=== PATIENT | male | born 1955 | race Caucasian/White ===

== ENCOUNTER → 2019-04-04 | Outpatient (CLI) | payer MEDICARE ==
[~2019-04-04] MED LIST: ATOR40TA78 PO; CARB200T4 PO; CARV6.25 PO; FAMO-79 PO; LAMO100T5 PO; LEVO25TA4 PO; LISI5TAB7 PO; WARF3TAB52 PO; WARF4TAB65 PO; ZIPR60CA3 PO
[2019-04-04 12:59] LABS: MEAN CORPUSCULAR HEMOGLOBIN 30.9 pg (27.5-34.5); MEAN CORPUSCULAR HGB CONC 33.5 g/dL (33.2-36.2); MEAN CORPUSCULAR VOLUME 92.5 fL (81-97); MEAN PLATELET VOLUME 6.9 fL (7.4-10.4); PLATELET COUNT 208 x10^3/uL (130-400); RED BLOOD COUNT 5.12 x10^6/uL (4.38-5.82)
[2019-04-04 15:49] LABS: CHLORIDE 109 mmol/L (98-107)
[2019-04-04 16:10] LABS: ALANINE AMINOTRANSFERASE 34 U/L (12-78); ALKALINE PHOSPHATASE 83 U/L (45-117); ANION GAP 5 mmol/L (5-15); BILIRUBIN,TOTAL 0.6 mg/dL (0.2-1.0); CALCIUM 8.4 mg/dL (8.5-10.1); CHOL/HDL RATIO 4.2; CHOLESTEROL, TOTAL 147 mg/dL (140-239); FREE T4 (FREE THYROXINE) 0.88 ng/dL (0.76-1.46); HDL CHOL % 24 % (26-37); HDL CHOLESTEROL (DIRECT) 35 mg/dL (40-60); LDL CHOLESTEROL,CALCULATED 80 mg/dL (54-169); LDL/HDL RATIO 2.3 (0.5-3.0); TOTAL PROTEIN 7.4 g/dL (6.4-8.2); TRIGLYCERIDES 159 mg/dL (50-200); VLDL CHOLESTEROL 32 mg/dL (0-25)
== END | disposition home or self-care (01) ==
LOC: CFH 11:32
PROVIDERS: ATTEND Family Medicine
DX: E03.9 Hypothyroidism, unspecified (principal); E78.2 Mixed hyperlipidemia; I10 Essential (primary) hypertension; K21.9 Gastro-esophageal reflux disease without esophagitis
CPT/HCPCS: 36415; 80053; 80061; 84439; 84443; 85027

== ENCOUNTER 2019-04-06 12:58 | Emergency (ER) | payer MEDICARE ==
[~2019-04-06] VITALS: Ht 193 cm; Wt 74.2 kg
[2019-04-06 13:25] VITALS: BP 148/93
[2019-04-06] MEDS ORDERED: LAMO100T5 PO (14:07)
[2019-04-06] MEDS ORDERED: FAMO-79 PO (14:07)
[2019-04-06] MEDS ORDERED: ATOR40TA78 PO (14:07)
[2019-04-06] MEDS ORDERED: CARB200T4 PO (14:07)
[2019-04-06] MEDS ORDERED: WARF4TAB65 PO (14:07)
[2019-04-06] MEDS ORDERED: LISI5TAB7 PO (14:07)
[2019-04-06] MEDS ORDERED: WARF3TAB52 PO (14:07)
[2019-04-06] MEDS ORDERED: LEVO25TA4 PO (14:07)
[2019-04-06] MEDS ORDERED: CARV6.25 PO (14:07)
[2019-04-06] MEDS ORDERED: ZIPR60CA3 PO (14:07)
--- NOTE | 2019-04-06 14:10 | NUR ---
PT PRESENTS TO ED W ATTEMPT OF SI THIS AM. PER FAMILY PT HAS HX OF PSYCH DISORDERS INCLUDING MANIC DEPRESSIVE. PT HAS HAD PLAN TO TAKE WARFARIN TO KILL HIMSELF. PT DECIDED NOT TOO AND LEFT MEDICATIONS ALONE. PT STATES HE TAKES ALL MEDICATIONS APPROPIATELY. PER FAMILY. PT WAS RECENTLY IN A [facility]PAT[facility] IN [facility]. ALL BELONGINGS SECURED. UA OBTAINED. FAMILY W PT. PT IS COOPERATIVE. PER FAMILY, PT IS UNABLE TO MAKE CLEAR DECISIONS FORSELF.
[2019-04-06 14:12] LABS: ALBUMIN 4.2 g/dL (3.4-5.0); ANION GAP 6 mmol/L (5-15); CALCIUM 8.5 mg/dL (8.5-10.1); CHLORIDE 107 mmol/L (98-107); CREATININE 1.15 mg/dL (0.7-1.3)
[2019-04-06 14:14] LABS: MEAN CORPUSCULAR HEMOGLOBIN 30.7 pg (27.5-34.5); MEAN CORPUSCULAR HGB CONC 33.4 g/dL (33.2-36.2); MEAN PLATELET VOLUME 6.9 fL (7.4-10.4); PLATELET COUNT 236 x10^3/uL (130-400); RED BLOOD COUNT 5.07 x10^6/uL (4.38-5.82); RED CELL DISTRIBUTION WIDTH 14.7 % (9.4-14.8)
[2019-04-06 14:19] LABS: SALICYLATE LEVEL < 1.7 mg/dL (2.8-20.0)
[2019-04-06 14:23] LABS: AMPHETAMINE SCREEN, URINE Negative (Negative); BARBITURATE SCREEN, URINE Negative (Negative); BENZODIAZEPINE SCREEN, URINE Negative (Negative); CANNABINOID SCREEN, URINE Negative (Negative); COCAINE SCREEN, URINE Negative (Negative); METHADONE SCREEN, URINE Negative (Negative); OPIATE SCREEN, URINE Negative (Negative)
--- NOTE | 2019-04-06 14:30 | NUR ---
KAMLA, SISTER. [phone]. OK TO GIVE INFO
[2019-04-06 14:36] LABS: BASOPHILS # (AUTO) 0.08 x10^3/uL (0-0.1); BASOPHILS % (AUTO) 1 % (0-1); EOSINOPHILS # (AUTO) 0.17 x10^3/uL (0-0.4); EOSINOPHILS % (AUTO) 2 % (1-7); LYMPHOCYTES # (AUTO) 1.14 x10^3/uL (1-3.4); LYMPHOCYTES % (AUTO) 14 % (22-44); MD SCAN; MONOCYTES # (AUTO) 0.67 x10^3/uL (0.2-0.8); MONOCYTES % (AUTO) 8 % (2-9); NEUTROPHILS # (AUTO) 6.05 x10^3/uL (1.8-6.8); NEUTROPHILS % (AUTO) 75 % (42-75)
--- NOTE | 2019-04-06 14:52 | NUR ---
FLOAT RN: PT RESTING IN ROOM. NO ACUTE DISTRESS NOTED.SITTER AT DOOR. WILL CONTINUE TO MONITOR PT WHILE PRIMARY RN IS ON BREAK.
--- NOTE | 2019-04-06 15:09 | NUR ---
CRISTIAN GARCIA IN ROOM TALKING WITH PATIENT.
--- NOTE | 2019-04-06 15:14 | NUR ---
Report given to AGGIE Gaston
[2019-04-06 15:34] LABS: INTERNATIONAL NORMALIZED RATIO 1.61 (0.93-1.1); PROTHROMBIN TIME 16.6 Seconds (9.6-11.5)
--- NOTE | 2019-04-06 16:40 | NUR ---
DIET TRAY ORDERED
--- NOTE | 2019-04-06 17:14 | NUR ---
REPORT TO Judi GERARD STABLE FOR TRANSFER
--- NOTE | 2019-04-06 17:27 | NUR ---
PT TRANSFERRED W BELONGINGS.
== END 2019-04-06 18:08 ==
LOC: ED 18:02
DX: R45.851 Suicidal ideations (principal); F31.9 Bipolar disorder, unspecified; I48.91 Unspecified atrial fibrillation; Z86.73 Personal history of transient ischemic attack (TIA), and cerebral infarction without residual deficits
CPT/HCPCS: 36415; 80048; 80307; 82040; 85025; 85610; 99284

== ENCOUNTER 2019-04-06 17:17 | Inpatient (IN) | payer MEDICARE ==
[~2019-04-06] VITALS: Ht 193 cm; Wt 74.8 kg
[2019-04-06] MEDS ORDERED: POLYETHYLENE GLYCOL 17 GM PACKET PO PRN (17:30)
[2019-04-06] MEDS ORDERED: BISACODYL 10 MG SUPP PR PRN (17:30)
[2019-04-06] MEDS ORDERED: ONDANSETRON ODT 4 MG PO PRN (17:30)
[2019-04-06] MEDS ORDERED: DOCUSATE 100 MG CAPSULE PO PRN (17:30)
[2019-04-06 17:50] VITALS: BP 150/98
[2019-04-06] MEDS ORDERED: PLEASE ENTER HEIGHT AND WEIGHT MC SCH ×2 (18:00→18:30)
[2019-04-06 18:29] VITALS: BP 150/98
[2019-04-06 19:34] VITALS: BP 110/72
[2019-04-06] MEDS ORDERED: WARFARIN 5 MG TABLET PO-COUM SCH (21:00)
[2019-04-06] MEDS ORDERED: CARVEDILOL 3.125 MG TABLET ONE (21:18)
[2019-04-06] MEDS ORDERED: WARFARIN 5 MG TABLET PO-COUM ONE (21:57)
[2019-04-06] MEDS: CARVEDILOL 6.25 MG TABLET PO SCH (21:59)
[2019-04-06] MEDS: ENOXAPARIN 80 MG/0.8 ML SQ SCH (22:00)
[2019-04-06] MEDS: ATORVASTATIN 40 MG TABLET PO SCH (22:00)
[2019-04-06] MEDS: ZIPRASIDONE 20MG CAPSULE PO SCH (22:00)
[2019-04-06] MEDS: FAMOTIDINE 20 MG TABLET PO SCH (22:00)
[2019-04-06] MEDS: LAMOTRIGINE 100 MG TABLET PO SCH (22:00)
[2019-04-06] MEDS: CARBAMAZEPINE 200 MG TABLET PO SCH (22:00)
[2019-04-07 05:51] VITALS: BP 112/73
[2019-04-07 06:02] LABS: CHOL/HDL RATIO 4.9; LDL/HDL RATIO 2.2 (0.5-3.0); T4 (THYROXINE) 6.6 mcg/dL (4.5-12.1)
[2019-04-07] MEDS: LEVOTHYROXINE 25 MCG TABLET PO SCH (06:10)
[2019-04-07] MEDS: CARVEDILOL 6.25 MG TABLET PO SCH ×2 (06:11→18:25)
[2019-04-07 07:00] VITALS: BP 117/76
[2019-04-07] MEDS: ENOXAPARIN 80 MG/0.8 ML SQ SCH ×2 (09:00→21:00)
[2019-04-07] MEDS: FAMOTIDINE 20 MG TABLET PO SCH ×2 (09:13→21:02)
[2019-04-07] MEDS: CARBAMAZEPINE 200 MG TABLET PO SCH ×2 (09:13→21:02)
[2019-04-07] MEDS: ZIPRASIDONE 20MG CAPSULE PO SCH ×2 (09:13→21:02)
[2019-04-07] MEDS: LAMOTRIGINE 100 MG TABLET PO SCH ×2 (09:13→21:02)
[2019-04-07] MEDS: LISINOPRIL 5 MG TABLET PO SCH (09:13)
[2019-04-07] MEDS: ACETAMINOPHEN 325 MG TABLET PO PRN (13:30)
[2019-04-07 13:48] LABS: INTERNATIONAL NORMALIZED RATIO 1.5 (0.93-1.1); PROTHROMBIN TIME 15.5 Seconds (9.6-11.5)
[2019-04-07 14:12] LABS: MICROSCOPIC AUTO
[2019-04-07 14:15] LABS: CULTURE INDICATED? YES
[2019-04-07] MEDS ORDERED: WARFARIN 3 MG TABLET PO-COUM ONE (18:00)
[2019-04-07] MEDS ORDERED: WARFARIN 5 MG TABLET PO-COUM SCH (18:00)
[2019-04-07 19:05] VITALS: BP 97/57
[2019-04-07] MEDS: ATORVASTATIN 40 MG TABLET PO SCH (21:02)
[2019-04-08 06:08] LABS: INTERNATIONAL NORMALIZED RATIO 2.02 (0.93-1.1); PROTHROMBIN TIME 20.6 Seconds (9.6-11.5)
[2019-04-08] MEDS: CARVEDILOL 6.25 MG TABLET PO SCH ×2 (06:16→17:23)
[2019-04-08] MEDS: LEVOTHYROXINE 25 MCG TABLET PO SCH (06:17)
[2019-04-08 06:19] VITALS: BP 106/73
[2019-04-08 06:58] VITALS: BP 106/71
[2019-04-08] MEDS: ZIPRASIDONE 20MG CAPSULE PO SCH ×2 (08:18→20:26)
[2019-04-08] MEDS: CARBAMAZEPINE 200 MG TABLET PO SCH ×2 (08:18→20:26)
[2019-04-08] MEDS: FAMOTIDINE 20 MG TABLET PO SCH ×2 (08:18→20:26)
[2019-04-08] MEDS: LAMOTRIGINE 100 MG TABLET PO SCH ×2 (08:18→20:26)
[2019-04-08] MEDS: LISINOPRIL 5 MG TABLET PO SCH (08:18)
[2019-04-08] MEDS: ENOXAPARIN 80 MG/0.8 ML SQ SCH ×2 (08:19→21:00)
[2019-04-08] MEDS ORDERED: WARFARIN 3 MG TABLET PO-COUM ONE (18:00)
[2019-04-08 19:26] VITALS: BP 111/76
[2019-04-08] MEDS: ATORVASTATIN 40 MG TABLET PO SCH (20:26)
[2019-04-09] MEDS: LEVOTHYROXINE 25 MCG TABLET PO SCH (06:26)
[2019-04-09] MEDS: CARVEDILOL 6.25 MG TABLET PO SCH ×2 (06:26→18:10)
[2019-04-09 06:29] LABS: INTERNATIONAL NORMALIZED RATIO 1.96 (0.93-1.1); PROTHROMBIN TIME 20.1 Seconds (9.6-11.5)
[2019-04-09 07:36] VITALS: BP 108/72
[2019-04-09] MEDS: LAMOTRIGINE 100 MG TABLET PO SCH ×2 (09:00→20:54)
[2019-04-09] MEDS: FAMOTIDINE 20 MG TABLET PO SCH ×2 (09:00→20:54)
[2019-04-09] MEDS: ZIPRASIDONE 20MG CAPSULE PO SCH ×2 (09:00→20:54)
[2019-04-09] MEDS: CARBAMAZEPINE 200 MG TABLET PO SCH ×2 (09:00→20:54)
[2019-04-09] MEDS: ENOXAPARIN 80 MG/0.8 ML SQ SCH ×2 (09:01→20:54)
[2019-04-09] MEDS: LISINOPRIL 5 MG TABLET PO SCH (09:01)
[2019-04-09] MEDS ORDERED: WARFARIN 3 MG TABLET PO-COUM ONE (18:00)
[2019-04-09] MEDS: QUETIAPINE 25MG TABLET PO PRN (18:15)
[2019-04-09 19:48] VITALS: BP 102/66
[2019-04-09] MEDS: ATORVASTATIN 40 MG TABLET PO SCH (20:54)
[2019-04-10] MEDS: LEVOTHYROXINE 25 MCG TABLET PO SCH (05:51)
[2019-04-10] MEDS: CARVEDILOL 6.25 MG TABLET PO SCH ×2 (05:51→17:04)
[2019-04-10 06:29] LABS: INTERNATIONAL NORMALIZED RATIO 1.69 (0.93-1.1); PROTHROMBIN TIME 17.4 Seconds (9.6-11.5)
[2019-04-10 07:49] VITALS: BP 109/75
[2019-04-10] MEDS: CARBAMAZEPINE 200 MG TABLET PO SCH ×2 (08:33→21:00)
[2019-04-10] MEDS: FAMOTIDINE 20 MG TABLET PO SCH ×2 (08:33→20:28)
[2019-04-10] MEDS: ZIPRASIDONE 20MG CAPSULE PO SCH ×2 (08:34→20:28)
[2019-04-10] MEDS: LISINOPRIL 5 MG TABLET PO SCH (08:34)
[2019-04-10] MEDS: LAMOTRIGINE 100 MG TABLET PO SCH ×2 (08:34→20:28)
[2019-04-10] MEDS: ENOXAPARIN 80 MG/0.8 ML SQ SCH ×2 (08:41→21:00)
[2019-04-10] MEDS ORDERED: WARFARIN 5 MG TABLET PO-COUM ONE (18:00)
[2019-04-10 19:33] VITALS: BP 116/78
[2019-04-10] MEDS: ATORVASTATIN 40 MG TABLET PO SCH (20:27)
[2019-04-11 06:25] LABS: INTERNATIONAL NORMALIZED RATIO 1.54 (0.93-1.1); PROTHROMBIN TIME 15.9 Seconds (9.6-11.5)
[2019-04-11 07:03] VITALS: BP 119/83
[2019-04-11] MEDS: CARVEDILOL 6.25 MG TABLET PO SCH ×2 (07:22→18:04)
[2019-04-11] MEDS: LEVOTHYROXINE 25 MCG TABLET PO SCH (07:22)
[2019-04-11] MEDS: LISINOPRIL 5 MG TABLET PO SCH (08:33)
[2019-04-11] MEDS: LAMOTRIGINE 100 MG TABLET PO SCH ×2 (08:33→20:33)
[2019-04-11] MEDS: ZIPRASIDONE 20MG CAPSULE PO SCH ×2 (08:34→20:32)
[2019-04-11] MEDS: CARBAMAZEPINE 200 MG TABLET PO SCH ×2 (08:34→20:32)
[2019-04-11] MEDS: FAMOTIDINE 20 MG TABLET PO SCH ×2 (08:34→20:32)
[2019-04-11] MEDS: ENOXAPARIN 80 MG/0.8 ML SQ SCH ×2 (08:34→20:33)
[2019-04-11] MEDS: QUETIAPINE 25MG TABLET PO PRN (12:42)
[2019-04-11] MEDS ORDERED: WARFARIN 7.5 MG TABLET PO-COUM ONE (18:00)
[2019-04-11 19:37] VITALS: BP 101/67
[2019-04-11] MEDS: ATORVASTATIN 40 MG TABLET PO SCH (20:33)
[2019-04-12] MEDS: CARVEDILOL 6.25 MG TABLET PO SCH ×2 (05:25→19:14)
[2019-04-12] MEDS: LEVOTHYROXINE 25 MCG TABLET PO SCH (05:25)
[2019-04-12 06:19] LABS: INTERNATIONAL NORMALIZED RATIO 1.89 (0.93-1.1); PROTHROMBIN TIME 19.4 Seconds (9.6-11.5)
[2019-04-12 07:09] VITALS: BP 102/67
[2019-04-12] MEDS: ENOXAPARIN 80 MG/0.8 ML SQ SCH ×2 (09:00→20:54)
[2019-04-12] MEDS: ZIPRASIDONE 20MG CAPSULE PO SCH ×2 (10:52→20:25)
[2019-04-12] MEDS: LISINOPRIL 5 MG TABLET PO SCH (10:52)
[2019-04-12] MEDS: FAMOTIDINE 20 MG TABLET PO SCH ×2 (10:53→20:25)
[2019-04-12] MEDS: LAMOTRIGINE 100 MG TABLET PO SCH ×2 (10:53→20:25)
[2019-04-12] MEDS: CARBAMAZEPINE 200 MG TABLET PO SCH ×2 (10:53→20:25)
[2019-04-12] MEDS ORDERED: WARFARIN 5 MG TABLET PO-COUM ONE (18:00)
[2019-04-12 19:25] VITALS: BP 111/66
[2019-04-12] MEDS: ATORVASTATIN 40 MG TABLET PO SCH (20:25)
[2019-04-13] MEDS: CARVEDILOL 6.25 MG TABLET PO SCH ×2 (05:12→17:39)
[2019-04-13] MEDS: LEVOTHYROXINE 25 MCG TABLET PO SCH (05:12)
[2019-04-13 07:00] VITALS: BP 106/69
[2019-04-13] MEDS: ENOXAPARIN 80 MG/0.8 ML SQ SCH ×2 (08:37→20:54)
[2019-04-13] MEDS: FAMOTIDINE 20 MG TABLET PO SCH ×2 (08:37→20:14)
[2019-04-13] MEDS: CARBAMAZEPINE 200 MG TABLET PO SCH ×2 (08:37→20:15)
[2019-04-13] MEDS: ZIPRASIDONE 20MG CAPSULE PO SCH ×2 (08:37→20:15)
[2019-04-13] MEDS: LAMOTRIGINE 100 MG TABLET PO SCH ×2 (08:37→20:15)
[2019-04-13] MEDS: LISINOPRIL 5 MG TABLET PO SCH (08:37)
[2019-04-13 09:14] LABS: INTERNATIONAL NORMALIZED RATIO 1.96 (0.93-1.1); PROTHROMBIN TIME 20.1 Seconds (9.6-11.5)
[2019-04-13] MEDS ORDERED: WARFARIN 2 MG TABLET PO-COUM SCH (18:00)
[2019-04-13 19:15] VITALS: BP 127/76
[2019-04-13] MEDS: ATORVASTATIN 40 MG TABLET PO SCH (20:15)
[2019-04-14 05:20] LABS: INTERNATIONAL NORMALIZED RATIO 1.89 (0.93-1.1); PROTHROMBIN TIME 19.4 Seconds (9.6-11.5)
[2019-04-14] MEDS: CARVEDILOL 6.25 MG TABLET PO SCH ×2 (06:04→17:34)
[2019-04-14] MEDS: LEVOTHYROXINE 25 MCG TABLET PO SCH (06:05)
[2019-04-14 07:22] VITALS: BP 106/71
[2019-04-14] MEDS: FAMOTIDINE 20 MG TABLET PO SCH ×2 (08:37→20:19)
[2019-04-14] MEDS: ZIPRASIDONE 20MG CAPSULE PO SCH ×2 (08:37→20:19)
[2019-04-14] MEDS: LISINOPRIL 5 MG TABLET PO SCH (08:37)
[2019-04-14] MEDS: CARBAMAZEPINE 200 MG TABLET PO SCH ×2 (08:37→20:19)
[2019-04-14] MEDS: LAMOTRIGINE 100 MG TABLET PO SCH ×2 (08:37→20:19)
[2019-04-14] MEDS: ENOXAPARIN 80 MG/0.8 ML SQ SCH ×2 (08:44→20:20)
[2019-04-14] MEDS ORDERED: WARFARIN 3 MG TABLET PO-COUM SCH (18:00)
[2019-04-14 19:33] VITALS: BP 119/69
[2019-04-14] MEDS: ATORVASTATIN 40 MG TABLET PO SCH (20:19)
[2019-04-15 05:22] LABS: INTERNATIONAL NORMALIZED RATIO 1.94 (0.93-1.1); PROTHROMBIN TIME 19.9 Seconds (9.6-11.5)
[2019-04-15 06:04] VITALS: BP 103/69
[2019-04-15] MEDS: CARVEDILOL 6.25 MG TABLET PO SCH ×2 (06:08→18:07)
[2019-04-15] MEDS: LEVOTHYROXINE 25 MCG TABLET PO SCH (06:08)
[2019-04-15 07:35] VITALS: BP 119/78
[2019-04-15] MEDS: CARBAMAZEPINE 200 MG TABLET PO SCH ×2 (08:45→21:01)
[2019-04-15] MEDS: FAMOTIDINE 20 MG TABLET PO SCH ×2 (08:45→21:01)
[2019-04-15] MEDS: LAMOTRIGINE 100 MG TABLET PO SCH ×2 (08:45→21:01)
[2019-04-15] MEDS: ZIPRASIDONE 20MG CAPSULE PO SCH ×2 (08:45→21:01)
[2019-04-15] MEDS: LISINOPRIL 5 MG TABLET PO SCH (08:45)
[2019-04-15] MEDS: ENOXAPARIN 80 MG/0.8 ML SQ SCH ×2 (08:50→21:05)
[2019-04-15] MEDS ORDERED: WARFARIN 3 MG TABLET PO-COUM SCH (18:00)
[2019-04-15 19:59] VITALS: BP 117/72
[2019-04-15] MEDS: ATORVASTATIN 40 MG TABLET PO SCH (21:01)
[2019-04-16] MEDS: LEVOTHYROXINE 25 MCG TABLET PO SCH (05:44)
[2019-04-16] MEDS: CARVEDILOL 6.25 MG TABLET PO SCH ×2 (05:44→17:44)
[2019-04-16 06:24] LABS: INTERNATIONAL NORMALIZED RATIO 2.14 (0.93-1.1); PROTHROMBIN TIME 21.8 Seconds (9.6-11.5)
[2019-04-16 07:30] VITALS: BP 108/70
[2019-04-16] MEDS: ENOXAPARIN 80 MG/0.8 ML SQ SCH ×2 (09:00→21:00)
[2019-04-16] MEDS: ZIPRASIDONE 20MG CAPSULE PO SCH ×2 (09:42→20:37)
[2019-04-16] MEDS: CARBAMAZEPINE 200 MG TABLET PO SCH ×2 (09:42→20:37)
[2019-04-16] MEDS: LAMOTRIGINE 100 MG TABLET PO SCH ×2 (09:43→20:37)
[2019-04-16] MEDS: LISINOPRIL 5 MG TABLET PO SCH (09:43)
[2019-04-16] MEDS: FAMOTIDINE 20 MG TABLET PO SCH ×2 (09:43→20:37)
[2019-04-16] MEDS ORDERED: WARFARIN 3 MG TABLET PO-COUM SCH (18:00)
[2019-04-16 19:45] VITALS: BP 110/66
[2019-04-16] MEDS: ATORVASTATIN 40 MG TABLET PO SCH (20:37)
[2019-04-17] MEDS: CARVEDILOL 6.25 MG TABLET PO SCH ×2 (05:10→18:34)
[2019-04-17] MEDS: LEVOTHYROXINE 25 MCG TABLET PO SCH (05:10)
[2019-04-17] MEDS: QUETIAPINE 25MG TABLET PO PRN (05:11)
[2019-04-17 06:18] LABS: INTERNATIONAL NORMALIZED RATIO 2.25 (0.93-1.1); PROTHROMBIN TIME 22.9 Seconds (9.6-11.5)
[2019-04-17 07:12] VITALS: BP 105/72
[2019-04-17] MEDS: FAMOTIDINE 20 MG TABLET PO SCH ×2 (08:53→21:08)
[2019-04-17] MEDS: ZIPRASIDONE 20MG CAPSULE PO SCH ×2 (08:53→21:08)
[2019-04-17] MEDS: ENOXAPARIN 80 MG/0.8 ML SQ SCH ×2 (08:54→21:07)
[2019-04-17] MEDS: LAMOTRIGINE 100 MG TABLET PO SCH ×2 (08:54→21:08)
[2019-04-17] MEDS: LISINOPRIL 5 MG TABLET PO SCH (08:54)
[2019-04-17] MEDS: CARBAMAZEPINE 200 MG TABLET PO SCH (08:54)
[2019-04-17] MEDS ORDERED: WARFARIN 5 MG TABLET PO-COUM ONE (18:00)
[2019-04-17 19:40] VITALS: BP 109/74
[2019-04-17] MEDS: ATORVASTATIN 40 MG TABLET PO SCH (21:08)
[2019-04-17] MEDS: CARBAMAZEPINE 100 MG TAB.CHEW PO SCH (21:08)
[2019-04-18 05:35] VITALS: BP 117/67
[2019-04-18] MEDS: LEVOTHYROXINE 25 MCG TABLET PO SCH (05:37)
[2019-04-18] MEDS: CARVEDILOL 6.25 MG TABLET PO SCH ×2 (05:37→16:53)
[2019-04-18 07:33] VITALS: BP 107/75
[2019-04-18 08:06] LABS: INTERNATIONAL NORMALIZED RATIO 2.6 (0.93-1.1); PROTHROMBIN TIME 26.3 Seconds (9.6-11.5)
[2019-04-18] MEDS: CARBAMAZEPINE 100 MG TAB.CHEW PO SCH ×2 (08:22→20:43)
[2019-04-18] MEDS: LISINOPRIL 5 MG TABLET PO SCH (08:22)
[2019-04-18] MEDS: LAMOTRIGINE 100 MG TABLET PO SCH ×2 (08:22→20:43)
[2019-04-18] MEDS: FAMOTIDINE 20 MG TABLET PO SCH ×2 (08:22→20:43)
[2019-04-18] MEDS: ZIPRASIDONE 20MG CAPSULE PO SCH ×2 (08:22→20:43)
[2019-04-18] MEDS: ENOXAPARIN 80 MG/0.8 ML SQ SCH ×2 (08:23→20:47)
[2019-04-18] MEDS: ACETAMINOPHEN 325 MG TABLET PO PRN (16:54)
[2019-04-18] MEDS ORDERED: WARFARIN 2 MG TABLET PO-COUM ONE (18:00)
[2019-04-18 19:10] VITALS: BP 105/68
[2019-04-18] MEDS: ATORVASTATIN 40 MG TABLET PO SCH (20:43)
[2019-04-19 05:33] VITALS: BP 117/79
[2019-04-19] MEDS: LEVOTHYROXINE 25 MCG TABLET PO SCH (05:35)
[2019-04-19] MEDS: CARVEDILOL 6.25 MG TABLET PO SCH ×2 (05:48→18:18)
[2019-04-19 06:00] LABS: INTERNATIONAL NORMALIZED RATIO 2.58 (0.93-1.1); PROTHROMBIN TIME 26.1 Seconds (9.6-11.5)
[2019-04-19 07:23] VITALS: BP 105/69
[2019-04-19] MEDS: CARBAMAZEPINE 100 MG TAB.CHEW PO SCH ×2 (08:55→20:22)
[2019-04-19] MEDS: ZIPRASIDONE 20MG CAPSULE PO SCH ×2 (08:55→20:22)
[2019-04-19] MEDS: FAMOTIDINE 20 MG TABLET PO SCH ×2 (08:55→20:22)
[2019-04-19] MEDS: LAMOTRIGINE 100 MG TABLET PO SCH ×2 (08:55→20:22)
[2019-04-19] MEDS: LISINOPRIL 5 MG TABLET PO SCH (08:56)
[2019-04-19] MEDS: ENOXAPARIN 80 MG/0.8 ML SQ SCH ×2 (08:56→20:30)
[2019-04-19] MEDS ORDERED: WARFARIN 2 MG TABLET PO-COUM ONE (18:00)
[2019-04-19 19:52] VITALS: BP 115/78
[2019-04-19] MEDS: ATORVASTATIN 40 MG TABLET PO SCH (20:22)
[2019-04-20] MEDS: CARVEDILOL 6.25 MG TABLET PO SCH ×2 (05:27→18:34)
[2019-04-20] MEDS: LEVOTHYROXINE 25 MCG TABLET PO SCH (05:27)
[2019-04-20 05:50] LABS: INTERNATIONAL NORMALIZED RATIO 1.89 (0.93-1.1); PROTHROMBIN TIME 19.4 Seconds (9.6-11.5)
[2019-04-20 07:00] VITALS: BP 112/74
[2019-04-20] MEDS: ENOXAPARIN 80 MG/0.8 ML SQ SCH ×2 (08:35→20:33)
[2019-04-20] MEDS: FAMOTIDINE 20 MG TABLET PO SCH ×2 (08:38→20:35)
[2019-04-20] MEDS: LAMOTRIGINE 100 MG TABLET PO SCH ×2 (08:38→20:35)
[2019-04-20] MEDS: CARBAMAZEPINE 100 MG TAB.CHEW PO SCH ×2 (08:38→20:33)
[2019-04-20] MEDS: LISINOPRIL 5 MG TABLET PO SCH (08:38)
[2019-04-20] MEDS: ZIPRASIDONE 20MG CAPSULE PO SCH ×2 (08:38→20:34)
[2019-04-20] MEDS ORDERED: WARFARIN 3 MG TABLET PO-COUM ONE (18:00)
[2019-04-20 18:36] VITALS: BP 90/63
[2019-04-20] MEDS: ATORVASTATIN 40 MG TABLET PO SCH (20:35)
[2019-04-21] MEDS: CARVEDILOL 6.25 MG TABLET PO SCH ×2 (05:03→17:32)
[2019-04-21] MEDS: LEVOTHYROXINE 25 MCG TABLET PO SCH (05:03)
[2019-04-21 05:28] LABS: INTERNATIONAL NORMALIZED RATIO 1.61 (0.93-1.1); PROTHROMBIN TIME 16.6 Seconds (9.6-11.5)
[2019-04-21 07:37] VITALS: BP 104/69
[2019-04-21] MEDS: CARBAMAZEPINE 100 MG TAB.CHEW PO SCH ×2 (08:47→21:19)
[2019-04-21] MEDS: FAMOTIDINE 20 MG TABLET PO SCH ×2 (08:48→21:19)
[2019-04-21] MEDS: ZIPRASIDONE 20MG CAPSULE PO SCH ×2 (08:48→21:19)
[2019-04-21] MEDS: LISINOPRIL 5 MG TABLET PO SCH (08:48)
[2019-04-21] MEDS: ENOXAPARIN 80 MG/0.8 ML SQ SCH ×3 (08:48→21:19)
[2019-04-21] MEDS: LAMOTRIGINE 100 MG TABLET PO SCH ×2 (08:48→21:19)
[2019-04-21] MEDS ORDERED: WARFARIN 7.5 MG TABLET PO-COUM ONE (18:00)
[2019-04-21 19:23] VITALS: BP 103/67
[2019-04-21] MEDS: ATORVASTATIN 40 MG TABLET PO SCH (21:19)
[2019-04-22] MEDS: CARVEDILOL 6.25 MG TABLET PO SCH ×2 (06:03→17:52)
[2019-04-22] MEDS: LEVOTHYROXINE 25 MCG TABLET PO SCH (06:03)
[2019-04-22 07:30] VITALS: BP 115/79
[2019-04-22 08:31] LABS: INTERNATIONAL NORMALIZED RATIO 1.89 (0.93-1.1); PROTHROMBIN TIME 19.4 Seconds (9.6-11.5)
[2019-04-22] MEDS: LAMOTRIGINE 100 MG TABLET PO SCH ×2 (08:49→20:19)
[2019-04-22] MEDS: LISINOPRIL 5 MG TABLET PO SCH (08:49)
[2019-04-22] MEDS: ZIPRASIDONE 20MG CAPSULE PO SCH ×2 (08:49→20:20)
[2019-04-22] MEDS: CARBAMAZEPINE 100 MG TAB.CHEW PO SCH ×2 (08:49→20:20)
[2019-04-22] MEDS: FAMOTIDINE 20 MG TABLET PO SCH ×2 (08:50→20:19)
[2019-04-22] MEDS: ENOXAPARIN 80 MG/0.8 ML SQ SCH ×2 (09:04→20:20)
[2019-04-22 17:47] VITALS: BP 125/80
[2019-04-22] MEDS ORDERED: WARFARIN 7.5 MG TABLET PO-COUM ONE (18:00)
[2019-04-22 19:39] VITALS: BP 109/75
[2019-04-22] MEDS: ATORVASTATIN 40 MG TABLET PO SCH (20:20)
[2019-04-22] MEDS: QUETIAPINE 25MG TABLET PO PRN (20:39)
[2019-04-23] MEDS: LEVOTHYROXINE 25 MCG TABLET PO SCH (06:13)
[2019-04-23] MEDS: CARVEDILOL 6.25 MG TABLET PO SCH ×2 (06:13→17:57)
[2019-04-23 06:34] LABS: INTERNATIONAL NORMALIZED RATIO 2.71 (0.93-1.1); PROTHROMBIN TIME 27.4 Seconds (9.6-11.5)
[2019-04-23 07:29] VITALS: BP 105/70
[2019-04-23] MEDS: ENOXAPARIN 80 MG/0.8 ML SQ SCH ×2 (09:00→20:31)
[2019-04-23] MEDS: CARBAMAZEPINE 100 MG TAB.CHEW PO SCH ×2 (09:25→20:31)
[2019-04-23] MEDS: ZIPRASIDONE 20MG CAPSULE PO SCH ×2 (09:25→20:30)
[2019-04-23] MEDS: FAMOTIDINE 20 MG TABLET PO SCH ×2 (09:26→20:30)
[2019-04-23] MEDS: LAMOTRIGINE 100 MG TABLET PO SCH ×2 (09:26→20:30)
[2019-04-23] MEDS: LISINOPRIL 5 MG TABLET PO SCH (09:26)
[2019-04-23] MEDS ORDERED: LORazepam 1MG TABLET PO ONE (11:00)
[2019-04-23 17:54] VITALS: BP 122/72
[2019-04-23] MEDS ORDERED: WARFARIN 1 MG TABLET PO-COUM ONE (18:00)
[2019-04-23 19:31] VITALS: BP 107/71
[2019-04-23] MEDS: ATORVASTATIN 40 MG TABLET PO SCH (20:30)
[2019-04-23] MEDS: MELATONIN 3 MG TABLET PO PRN (20:36)
[2019-04-24] MEDS: LEVOTHYROXINE 25 MCG TABLET PO SCH (05:39)
[2019-04-24] MEDS: CARVEDILOL 6.25 MG TABLET PO SCH ×2 (05:39→17:16)
[2019-04-24 05:50] LABS: INTERNATIONAL NORMALIZED RATIO 2.44 (0.93-1.1); PROTHROMBIN TIME 24.8 Seconds (9.6-11.5)
[2019-04-24 07:33] VITALS: BP 112/76
[2019-04-24] MEDS: LISINOPRIL 5 MG TABLET PO SCH (08:31)
[2019-04-24] MEDS: FAMOTIDINE 20 MG TABLET PO SCH ×2 (08:31→20:40)
[2019-04-24] MEDS: ZIPRASIDONE 20MG CAPSULE PO SCH ×2 (08:31→20:40)
[2019-04-24] MEDS: LAMOTRIGINE 100 MG TABLET PO SCH ×2 (08:31→20:40)
[2019-04-24] MEDS: ENOXAPARIN 80 MG/0.8 ML SQ SCH ×2 (08:32→20:41)
[2019-04-24] MEDS: CARBAMAZEPINE 100 MG TAB.CHEW PO SCH ×2 (08:32→20:40)
[2019-04-24] MEDS ORDERED: WARFARIN 2 MG TABLET PO-COUM ONE (18:00)
[2019-04-24 19:38] VITALS: BP 107/73
[2019-04-24] MEDS: ATORVASTATIN 40 MG TABLET PO SCH (20:41)
[2019-04-25] MEDS: CARVEDILOL 6.25 MG TABLET PO SCH ×2 (06:01→18:13)
[2019-04-25] MEDS: LEVOTHYROXINE 25 MCG TABLET PO SCH (06:01)
[2019-04-25 06:23] LABS: INTERNATIONAL NORMALIZED RATIO 1.69 (0.93-1.1); PROTHROMBIN TIME 17.4 Seconds (9.6-11.5)
[2019-04-25 07:06] VITALS: BP 103/71
[2019-04-25] MEDS: LISINOPRIL 5 MG TABLET PO SCH (09:07)
[2019-04-25] MEDS: LAMOTRIGINE 100 MG TABLET PO SCH ×2 (09:07→20:43)
[2019-04-25] MEDS: ZIPRASIDONE 20MG CAPSULE PO SCH ×2 (09:07→20:43)
[2019-04-25] MEDS: FAMOTIDINE 20 MG TABLET PO SCH ×2 (09:07→20:44)
[2019-04-25] MEDS: CARBAMAZEPINE 100 MG TAB.CHEW PO SCH ×2 (09:08→20:43)
[2019-04-25] MEDS: ENOXAPARIN 80 MG/0.8 ML SQ SCH ×2 (09:08→20:43)
[2019-04-25] MEDS ORDERED: LISI5TAB7 PO (15:48)
[2019-04-25] MEDS ORDERED: LAMO100T PO (15:48)
[2019-04-25] MEDS ORDERED: WARF3TAB PO-COUM (15:48)
[2019-04-25] MEDS ORDERED: FAMO20TA7 PO (15:48)
[2019-04-25] MEDS ORDERED: LEVO25TA2 PO (15:48)
[2019-04-25] MEDS ORDERED: CARV6.2512 PO (15:48)
[2019-04-25] MEDS ORDERED: ZIPR20CA2 PO (15:48)
[2019-04-25] MEDS ORDERED: ATOR40TA78 PO (15:48)
[2019-04-25] MEDS ORDERED: CARB100T4 PO (15:48)
[2019-04-25] MEDS ORDERED: WARFARIN 3 MG TABLET PO-COUM ONE (18:00)
[2019-04-25 19:15] VITALS: BP 103/70
[2019-04-25] MEDS: MELATONIN 3 MG TABLET PO PRN (20:43)
[2019-04-25] MEDS: ATORVASTATIN 40 MG TABLET PO SCH (20:43)
[2019-04-26] MEDS: CARVEDILOL 6.25 MG TABLET PO SCH (05:38)
[2019-04-26] MEDS: LEVOTHYROXINE 25 MCG TABLET PO SCH (05:38)
[2019-04-26 07:17] LABS: CREATININE 0.92 mg/dL (0.7-1.3)
[2019-04-26 07:30] LABS: INTERNATIONAL NORMALIZED RATIO 1.63 (0.93-1.1); PROTHROMBIN TIME 16.8 Seconds (9.6-11.5)
[2019-04-26 07:34] VITALS: BP 110/72
[2019-04-26] MEDS: CARBAMAZEPINE 100 MG TAB.CHEW PO SCH (08:44)
[2019-04-26] MEDS: FAMOTIDINE 20 MG TABLET PO SCH (08:44)
[2019-04-26] MEDS: LAMOTRIGINE 100 MG TABLET PO SCH (08:44)
[2019-04-26] MEDS: ENOXAPARIN 80 MG/0.8 ML SQ SCH (08:44)
[2019-04-26] MEDS: ZIPRASIDONE 20MG CAPSULE PO SCH (08:44)
[2019-04-26] MEDS: LISINOPRIL 5 MG TABLET PO SCH (08:44)
[2019-04-26] MEDS: QUETIAPINE 25MG TABLET PO PRN (08:45)
[2019-04-26] MEDS ORDERED: LORazepam 1MG TABLET ONE (13:20)
[2019-04-26] MEDS ORDERED: LORazepam 1MG TABLET PO ONE (13:30)
== END 2019-04-26 13:30 | disposition home or self-care (01) | DRG 885 ==
LOC: 3E 17:36
PROVIDERS: ADMIT Psychiatry & Neurology Psychosomatic Medicine; ATTEND Psychiatry & Neurology Psychosomatic Medicine
DX: F31.5 Bipolar disorder, current episode depressed, severe, with psychotic features (principal); R45.851 Suicidal ideations; I48.20 Chronic atrial fibrillation, unspecified; I11.0 Hypertensive heart disease with heart failure; E03.9 Hypothyroidism, unspecified; E78.1 Pure hyperglyceridemia; E78.5 Hyperlipidemia, unspecified; I25.10 Atherosclerotic heart disease of native coronary artery without angina pectoris; I25.2 Old myocardial infarction; I50.9 Heart failure, unspecified; K21.9 Gastro-esophageal reflux disease without esophagitis; Z79.01 Long term (current) use of anticoagulants; Z82.3 Family history of stroke; Z82.49 Family history of ischemic heart disease and other diseases of the circulatory system; Z86.73 Personal history of transient ischemic attack (TIA), and cerebral infarction without residual deficits
CPT/HCPCS: 36415; 80048; 80053; 80061; 80307; 81001; 82040; 82140; 82565; 82607; 84436; 84439; 84443; 85025; 85027; 85610; 87086; 93005; 99284; J1650

== ENCOUNTER 2019-06-05 18:20 | Emergency (ER) | payer MEDICARE ==
[~2019-06-05] VITALS: Ht 193 cm; Wt 74.0 kg
[~2019-06-05 18:20] MED LIST changes: +CARB100T4 PO; +CARV6.2512 PO; +FAMO20TA7 PO; +LAMO100T PO; +LEVO25TA2 PO; +WARF3TAB PO-COUM; +ZIPR20CA2 PO
[2019-06-05 18:49] LABS: BASOPHILS # (AUTO) 0.02 x10^3/uL (0-0.1); BASOPHILS % (AUTO) 0 % (0-1); EOSINOPHILS # (AUTO) 0.14 x10^3/uL (0-0.4); EOSINOPHILS % (AUTO) 2 % (1-7); LYMPHOCYTES # (AUTO) 1.62 x10^3/uL (1-3.4); LYMPHOCYTES % (AUTO) 17 % (22-44); MD NO; MEAN CORPUSCULAR HEMOGLOBIN 32.2 pg (27.5-34.5); MEAN CORPUSCULAR HGB CONC 34.3 g/dL (33.2-36.2); MEAN CORPUSCULAR VOLUME 93.8 fL (81-97); MEAN PLATELET VOLUME 7.5 fL (7.4-10.4); MONOCYTES # (AUTO) 0.58 x10^3/uL (0.2-0.8); MONOCYTES % (AUTO) 6 % (2-9); NEUTROPHILS # (AUTO) 7.21 x10^3/uL (1.8-6.8); NEUTROPHILS % (AUTO) 75 % (42-75); PLATELET COUNT 270 x10^3/uL (130-400); RED BLOOD COUNT 5.11 x10^6/uL (4.38-5.82); RED CELL DISTRIBUTION WIDTH 13.9 % (9.4-14.8)
[2019-06-05 18:58] LABS: ALBUMIN 4.3 g/dL (3.4-5.0); ANION GAP 10 mmol/L (5-15); CALCIUM 8.5 mg/dL (8.5-10.1); CHLORIDE 108 mmol/L (98-107); CREATININE 1.36 mg/dL (0.7-1.3)
[2019-06-05 19:02] LABS: TROPONIN I < 0.015 ng/mL (0.000-0.045)
--- NOTE | 2019-06-05 20:11 | NUR ---
pt to room from lobby
--- NOTE | 2019-06-05 20:30 | NUR ---
PT REPORTS "I FEEL SILLY FOR COMING IN BECAUSE I WAS JUST HAVING ANXIETY". PT REPORTS SOB, CP AND ANXIETY STARTING AROUND 6PM DUE TO LIFE STRESSORS. PT DENIES ANY C/O AT THIS TIME INCLUDING CP/SOB/ANX. PT STATES V"YEAH I FEEL FIT A FIDDLE". PT CONENCTED TO MONITORING, CALL LIGHT WITHIN REACH, ALL SAFETY MEASURES IN PLACE.
--- NOTE | 2019-06-05 20:50 | NUR ---
PT BROTHER IN LAW REPORTS PT HAS EXTRENSIVE PHSYCH HX. HAS BIPOLAR DISORDER ALONG WITH OCCASIONAL ANGELINE/ANXIETY. PT HAS SI HX BUT DENIES AT THIS TIME. PT LIVES WITH BROTHER IN LAW WHO HAS BEEN HELPING HIM TAKE HIS MEDICATIONS PRESCRIBED
[2019-06-05 21:22] VITALS: BP 151/78
== END 2019-06-05 21:24 | disposition home or self-care (01) ==
LOC: ED 21:01
DX: R06.02 Shortness of breath (principal); Z86.73 Personal history of transient ischemic attack (TIA), and cerebral infarction without residual deficits; I48.91 Unspecified atrial fibrillation; Z00.00 Encounter for general adult medical examination without abnormal findings
CPT/HCPCS: 36415; 71045; 80048; 82040; 84484; 85025; 93005; 99284

== ENCOUNTER → 2019-06-29 | Outpatient (CLI) | payer MEDICARE ==
[2019-06-29 12:58] LABS: INTERNATIONAL NORMALIZED RATIO 3.12 (0.93-1.1); PROTHROMBIN TIME 33.5 Seconds (9.6-11.5)
== END | disposition home or self-care (01) ==
LOC: CFH 11:34
PROVIDERS: ATTEND Internal Medicine Cardiovascular Disease
DX: I48.91 Unspecified atrial fibrillation (principal); Z79.01 Long term (current) use of anticoagulants
CPT/HCPCS: 36415; 85610

== ENCOUNTER → 2020-03-04 | Outpatient (CLI) | payer MEDICARE ==
[~2020-03-04] MED LIST changes: -LAMO100T PO; +LAMO100T8 PO
== END | disposition home or self-care (01) ==
LOC: CFH 11:53
PROVIDERS: ATTEND Internal Medicine Cardiovascular Disease
DX: I08.2 Rheumatic disorders of both aortic and tricuspid valves (principal); I42.9 Cardiomyopathy, unspecified; I10 Essential (primary) hypertension; E78.5 Hyperlipidemia, unspecified; Z86.73 Personal history of transient ischemic attack (TIA), and cerebral infarction without residual deficits; Z95.0 Presence of cardiac pacemaker
CPT/HCPCS: 93306